=== PATIENT | female | born 1940 | race Caucasian/White ===

== ENCOUNTER 2017-12-09 17:05 | Inpatient (IN) | payer OTHER ==
[~2017-12-09] VITALS: Ht 160 cm; Wt 39.7 kg
[2017-12-09] MEDS ORDERED: ipratropium/albuterol 3ml nebule NEB ONE (17:35)
[2017-12-09] MEDS ORDERED: furosemide 10 MG/1 ML 10ml inj IV ONE (17:40)
[2017-12-09] MEDS ORDERED: diltiazem 5mg/ml 5ml inj. IV ONE (17:40)
[2017-12-09 18:05] LABS: BASOPHILS # (AUTO) 0.1 X10'3 (0-0.2); BASOPHILS % (AUTO) 0.5 % (0-1); EOSINOPHILS % (AUTO) 0.3 % (0-6); HEMATOCRIT 34.5 % (35.0-45.0); HEMOGLOBIN 11.3 g/dl (12.0-16.0); LYMPHOCYTES # (AUTO) 0.8 X10'3 (1.1-4.8); LYMPHOCYTES % (AUTO) 6.5 % (21-51); MEAN CORPUSCULAR HEMOGLOBIN 30.6 PG (27.0-31.0); MEAN CORPUSCULAR HGB CONC 32.7 % (33.0-36.5); MEAN CORPUSCULAR VOLUME 93.6 FL (78-98); MEAN PLATELET VOLUME 9.2 FL (7.4-10.4); MONOCYTES # (AUTO) 0.3 X10'3 (0-0.9); MONOCYTES % (AUTO) 2.5 % (2-12); NEUTROPHILS # (AUTO) 10.5 X10'3 (1.8-7.7); NEUTROPHILS % (AUTO) 90.2 % (42-75); PLATELET COUNT 250 X10'3 (140-440); RED BLOOD COUNT 3.68 X10'6 (4.20-5.60); RED CELL DISTRIBUTION WIDTH 14.3 % (11.5-14.5); WHITE BLOOD COUNT 11.7 X10'3 (4.5-11.0)
[2017-12-09 18:18] LABS: PARTIAL THROMBOPLASTIN TIME 28 SECONDS (22-32); PROTHROMBIN TIME 9.8 SECONDS (9.0-12.0)
[2017-12-09 18:20] LABS: ALANINE AMINOTRANSFERASE 65 U/L (12-78); ALBUMIN 3.4 G/DL (3.4-5.0); ALBUMIN/GLOBULIN RATIO 0.8 (1.1-1.5); ALKALINE PHOSPHATASE 130 IU/L (46-116); ANION GAP 10 (8-16); ASPARTATE AMINO TRANSFERASE 47 U/L (10-37); BILIRUBIN,TOTAL 0.4 MG/DL (0.1-1.0); BLOOD UREA NITROGEN 14 MG/DL (7-18); BUN/CREATININE RATIO 18.4 (6.6-38.0); CALCIUM 9.3 MG/DL (8.5-10.1); CHLORIDE 88 MMOL/L (99-107); CREATININE 0.76 MG/DL (0.40-0.90); GLUCOSE 106 MG/DL (70-104); POTASSIUM 4.1 MMOL/L (3.5-5.1); SODIUM 127 MMOL/L (135-145); TOTAL CARBON DIOXIDE 29.4 MMOL/L (24-32); TOTAL PROTEIN 7.5 G/DL (6.4-8.2); eGFR 74 ML/MIN
[2017-12-09] MEDS ORDERED: HYDR-3972 PO (19:26)
[2017-12-09] MEDS ORDERED: BUSP5TAB3 PO (19:26)
[2017-12-09] MEDS ORDERED: MIRT15TA PO (19:26)
[2017-12-09] MEDS ORDERED: BUDE10.2 INH (19:26)
[2017-12-09] MEDS ORDERED: TRAZ-218 PO (19:26)
[2017-12-09] MEDS ORDERED: ALB0.5UD IH (19:26)
[2017-12-09] MEDS ORDERED: ondansetron/PF 4mg/2ml inj IV PRN (20:00)
[2017-12-09] MEDS ORDERED: mag hydrox/Alum hydrox/simeth 30ml oral suspension PO PRN (20:00)
[2017-12-09] MEDS ORDERED: magnesium hydroxide 30ml (MOM) UD suspension PO PRN (20:00)
[2017-12-09] MEDS ORDERED: acetaminophen 325mg tablet PO PRN (20:00)
[2017-12-09] MEDS ORDERED: albuterol 2.5 mg/0.5ml nebule NEB PRN (20:05)
[2017-12-09] MEDS ORDERED: azithromycin 250mg tablet PO ONE (20:10)
[2017-12-09] MEDS ORDERED: guaiFENesin/DM/phenylephrine syrup 120ml bottle PO PRN (20:10)
[2017-12-09] MEDS: mirtazapine 15mg tablet PO SCH (21:58)
[2017-12-09] MEDS: traZODone 50mg tablet PO SCH (21:58)
[2017-12-09 22:00] VITALS: BP 95/62
[2017-12-09] MEDS: albuterol 2.5 MG/3 ML nebule NEB SCH (22:48)
[2017-12-10] MEDS ORDERED: diltiazem 30mg tablet PO ONE (00:05)
[2017-12-10] MEDS ORDERED: diltiazem 5mg/ml 5ml inj. IV ONE (00:05)
[2017-12-10] MEDS: diltiazem 30mg tablet PO SCH ×4 (00:10→20:57)
[2017-12-10] MEDS: methylPREDNISolone sod succ/PF 40mg inj. IV SCH ×3 (00:19→20:00)
[2017-12-10 02:00] VITALS: BP 160/78
[2017-12-10] MEDS: albuterol 2.5 MG/3 ML nebule NEB SCH ×4 (03:00→19:51)
[2017-12-10] MEDS: albuterol 2.5 MG/3 ML nebule NEB PRN ×2 (05:52→12:58)
[2017-12-10 06:00] VITALS: BP 132/75
[2017-12-10 06:01] LABS: BASOPHILS % (AUTO) 0.1 % (0-1); EOSINOPHILS # (AUTO) 0.1 X10'3 (0-0.9); EOSINOPHILS % (AUTO) 1.1 % (0-6); HEMATOCRIT 33.9 % (35.0-45.0); HEMOGLOBIN 11.2 g/dl (12.0-16.0); LYMPHOCYTES # (AUTO) 0.5 X10'3 (1.1-4.8); LYMPHOCYTES % (AUTO) 4.8 % (21-51); MEAN CORPUSCULAR HEMOGLOBIN 30.9 PG (27.0-31.0); MEAN CORPUSCULAR HGB CONC 33.1 % (33.0-36.5); MEAN CORPUSCULAR VOLUME 93.2 FL (78-98); MEAN PLATELET VOLUME 9.4 FL (7.4-10.4); MONOCYTES # (AUTO) 0.1 X10'3 (0-0.9); MONOCYTES % (AUTO) 0.8 % (2-12); NEUTROPHILS % (AUTO) 93.2 % (42-75); PLATELET COUNT 239 X10'3 (140-440); RED BLOOD COUNT 3.63 X10'6 (4.20-5.60); RED CELL DISTRIBUTION WIDTH 14.3 % (11.5-14.5); WHITE BLOOD COUNT 9.6 X10'3 (4.5-11.0)
[2017-12-10 06:26] LABS: GLUCOSE 99 MG/DL (70-104); POTASSIUM 4.1 MMOL/L (3.5-5.1); SODIUM 128 MMOL/L (135-145)
[2017-12-10 06:27] LABS: ALBUMIN 3.1 G/DL (3.4-5.0); ALBUMIN/GLOBULIN RATIO 0.8 (1.1-1.5); ALKALINE PHOSPHATASE 113 IU/L (46-116); ANION GAP 6 (8-16); ASPARTATE AMINO TRANSFERASE 35 U/L (10-37); BILIRUBIN,TOTAL 0.4 MG/DL (0.1-1.0); BLOOD UREA NITROGEN 17 MG/DL (7-18); BUN/CREATININE RATIO 22.4 (6.6-38.0); CALCIUM 9.5 MG/DL (8.5-10.1); CHLORIDE 88 MMOL/L (99-107); CREATININE 0.76 MG/DL (0.40-0.90); TOTAL CARBON DIOXIDE 33.6 MMOL/L (24-32); TOTAL PROTEIN 6.9 G/DL (6.4-8.2); eGFR 74 ML/MIN
[2017-12-10 06:40] LABS: ALANINE AMINOTRANSFERASE 62 U/L (12-78)
[2017-12-10] MEDS: busPIRone 5mg tablet PO SCH (07:44)
[2017-12-10] MEDS: azithromycin 250mg tablet PO SCH (07:44)
[2017-12-10] MEDS: enoxaparin 40mg/0.4ml syringe SUBCUT SCH (07:45)
[2017-12-10] MEDS ORDERED: normal saline 1000ml 1,000 ML IV SCH (08:45)
[2017-12-10] MEDS: budesonide 0.5mg/2ml UD nebule IH SCH ×2 (09:28→19:50)
[2017-12-10] MEDS ORDERED: ALPRAZolam 0.25mg tablet PO PRN (10:50)
[2017-12-10 11:00] VITALS: BP 134/65
[2017-12-10 11:31] LABS: ABG BASE EXCESS 9.4 mmol/L (-2.0-3.0); ABG OXYGEN SATURATION 95.2 % (95-98); ABG PCO2 (T) 59.9 mmHg (32.0-45.0); ABG PH (T) 7.397 (7.350-7.450); ABG PO2 (T) 78.8 mmHg (83-108); FCOHb 0.3 % (0.5-1.5); FLOW 2 L/min; FMetHb 0.3 % (0.3-1.12); FO2Hb 94.6 % (94-100); TOTAL HEMOGLOBIN 11.3 G/dl (12.0-16.0)
[2017-12-10] MEDS: HYDROcodone/acetaminophen 5mg/325mg tablet PO PRN ×2 (12:55→18:49)
[2017-12-10] MEDS ORDERED: ketorolac trometh. 30mg/ml inj. IM SCH (14:00)
[2017-12-10 15:00] VITALS: BP 119/56
[2017-12-10 18:00] VITALS: BP 143/61
[2017-12-10] MEDS: mirtazapine 15mg tablet PO SCH (20:56)
[2017-12-10] MEDS: traZODone 50mg tablet PO SCH (20:57)
[2017-12-10 22:00] VITALS: BP 144/66
[2017-12-11 02:00] VITALS: BP 147/69
[2017-12-11] MEDS: diltiazem 30mg tablet PO SCH ×4 (02:15→20:04)
[2017-12-11] MEDS: albuterol 2.5 MG/3 ML nebule NEB SCH ×4 (02:18→18:51)
[2017-12-11 05:09] LABS: BASOPHILS % (AUTO) 0.1 % (0-1); EOSINOPHILS % (AUTO) 0 % (0-6); HEMATOCRIT 31.4 % (35.0-45.0); HEMOGLOBIN 10.2 g/dl (12.0-16.0); LYMPHOCYTES # (AUTO) 0.3 X10'3 (1.1-4.8); LYMPHOCYTES % (AUTO) 2.7 % (21-51); MEAN CORPUSCULAR HEMOGLOBIN 30.4 PG (27.0-31.0); MEAN CORPUSCULAR HGB CONC 32.5 % (33.0-36.5); MEAN CORPUSCULAR VOLUME 93.4 FL (78-98); MEAN PLATELET VOLUME 9.3 FL (7.4-10.4); MONOCYTES # (AUTO) 0.2 X10'3 (0-0.9); MONOCYTES % (AUTO) 1.6 % (2-12); NEUTROPHILS # (AUTO) 11.7 X10'3 (1.8-7.7); NEUTROPHILS % (AUTO) 95.6 % (42-75); PLATELET COUNT 233 X10'3 (140-440); RED BLOOD COUNT 3.36 X10'6 (4.20-5.60); WHITE BLOOD COUNT 12.3 X10'3 (4.5-11.0)
[2017-12-11 05:31] LABS: ALANINE AMINOTRANSFERASE 48 U/L (12-78); ALBUMIN 2.9 G/DL (3.4-5.0); ALBUMIN/GLOBULIN RATIO 0.8 (1.1-1.5); ALKALINE PHOSPHATASE 95 IU/L (46-116); ANION GAP 3 (8-16); ASPARTATE AMINO TRANSFERASE 21 U/L (10-37); BILIRUBIN,TOTAL 0.3 MG/DL (0.1-1.0); BLOOD UREA NITROGEN 20 MG/DL (7-18); BUN/CREATININE RATIO 32.3 (6.6-38.0); CALCIUM 8.6 MG/DL (8.5-10.1); CHLORIDE 92 MMOL/L (99-107); CREATININE 0.62 MG/DL (0.40-0.90); GLUCOSE 142 MG/DL (70-104); POTASSIUM 4.2 MMOL/L (3.5-5.1); SODIUM 130 MMOL/L (135-145); TOTAL PROTEIN 6.5 G/DL (6.4-8.2); eGFR > 90 ML/MIN
[2017-12-11 06:00] VITALS: BP 143/65
[2017-12-11] MEDS: budesonide 0.5mg/2ml UD nebule IH SCH ×2 (08:04→18:51)
[2017-12-11] MEDS: methylPREDNISolone sod succ/PF 40mg inj. IV SCH ×2 (08:19→20:03)
[2017-12-11] MEDS: azithromycin 250mg tablet PO SCH (08:19)
[2017-12-11] MEDS: busPIRone 5mg tablet PO SCH (08:19)
[2017-12-11] MEDS: enoxaparin 40mg/0.4ml syringe SUBCUT SCH (08:20)
[2017-12-11] MEDS: HYDROcodone/acetaminophen 5mg/325mg tablet PO PRN ×3 (09:52→20:04)
[2017-12-11] MEDS: albuterol 2.5 MG/3 ML nebule NEB PRN ×2 (10:43→22:57)
[2017-12-11 11:00] VITALS: BP 112/61
[2017-12-11 15:00] VITALS: BP 115/57
[2017-12-11 19:00] VITALS: BP 142/58
[2017-12-11] MEDS: mirtazapine 15mg tablet PO SCH (20:04)
[2017-12-11] MEDS: traZODone 50mg tablet PO SCH (20:04)
[2017-12-11 23:00] VITALS: BP 146/58
[2017-12-12] MEDS: diltiazem 30mg tablet PO SCH ×4 (01:49→19:20)
[2017-12-12] MEDS: albuterol 2.5 MG/3 ML nebule NEB SCH ×4 (02:47→20:58)
[2017-12-12 03:00] VITALS: BP 145/65
[2017-12-12 06:00] VITALS: BP 148/66
[2017-12-12 06:44] LABS: BASOPHILS % (AUTO) 0 % (0-1); EOSINOPHILS # (AUTO) 0.1 X10'3 (0-0.9); EOSINOPHILS % (AUTO) 0.9 % (0-6); HEMATOCRIT 30.8 % (35.0-45.0); HEMOGLOBIN 10.1 g/dl (12.0-16.0); LYMPHOCYTES # (AUTO) 0.2 X10'3 (1.1-4.8); MEAN CORPUSCULAR HEMOGLOBIN 30.8 PG (27.0-31.0); MEAN CORPUSCULAR HGB CONC 32.9 % (33.0-36.5); MEAN CORPUSCULAR VOLUME 93.7 FL (78-98); MEAN PLATELET VOLUME 9.8 FL (7.4-10.4); MONOCYTES # (AUTO) 0.2 X10'3 (0-0.9); MONOCYTES % (AUTO) 2.5 % (2-12); NEUTROPHILS # (AUTO) 9.1 X10'3 (1.8-7.7); NEUTROPHILS % (AUTO) 94.6 % (42-75); PLATELET COUNT 237 X10'3 (140-440); RED BLOOD COUNT 3.29 X10'6 (4.20-5.60); RED CELL DISTRIBUTION WIDTH 14.3 % (11.5-14.5); WHITE BLOOD COUNT 9.7 X10'3 (4.5-11.0)
[2017-12-12 06:53] LABS: ALANINE AMINOTRANSFERASE 40 U/L (12-78); ALBUMIN 2.8 G/DL (3.4-5.0); ALBUMIN/GLOBULIN RATIO 0.8 (1.1-1.5); ALKALINE PHOSPHATASE 76 IU/L (46-116); ANION GAP 2 (8-16); ASPARTATE AMINO TRANSFERASE 15 U/L (10-37); BILIRUBIN,TOTAL 0.2 MG/DL (0.1-1.0); BLOOD UREA NITROGEN 27 MG/DL (7-18); CALCIUM 9.2 MG/DL (8.5-10.1); CHLORIDE 97 MMOL/L (99-107); CREATININE 0.71 MG/DL (0.40-0.90); GLUCOSE 143 MG/DL (70-104); SODIUM 135 MMOL/L (135-145); TOTAL CARBON DIOXIDE 36.5 MMOL/L (24-32); TOTAL PROTEIN 6.1 G/DL (6.4-8.2); eGFR 80 ML/MIN
[2017-12-12 07:06] LABS: % IRON SATURATION 11 % (11-46); IRON 26 UG/DL (49-151); TOTAL IRON BINDING CAPACITY 233 UG/DL (259-388)
[2017-12-12] MEDS: enoxaparin 40mg/0.4ml syringe SUBCUT SCH (07:18)
[2017-12-12] MEDS: pantoprazole 40mg Tablet.DR PO SCH (07:18)
[2017-12-12] MEDS: azithromycin 250mg tablet PO SCH (07:18)
[2017-12-12] MEDS: busPIRone 5mg tablet PO SCH (07:18)
[2017-12-12] MEDS: methylPREDNISolone sod succ/PF 40mg inj. IV SCH ×2 (07:18→19:19)
[2017-12-12] MEDS: budesonide 0.5mg/2ml UD nebule IH SCH ×2 (08:38→20:59)
[2017-12-12] MEDS: HYDROcodone/acetaminophen 5mg/325mg tablet PO PRN ×2 (10:44→19:21)
[2017-12-12 11:00] VITALS: BP 119/60
[2017-12-12] MEDS: albuterol 2.5 MG/3 ML nebule NEB PRN ×2 (11:52→18:29)
[2017-12-12 15:00] VITALS: BP 151/46
[2017-12-12 19:00] VITALS: BP 173/75
[2017-12-12] MEDS: lactobacillus rhamnosus 10,000 MMU CELLS/CAPSULE PO SCH (19:22)
[2017-12-12] MEDS: mirtazapine 15mg tablet PO SCH (20:51)
[2017-12-12] MEDS: traZODone 50mg tablet PO SCH (20:51)
[2017-12-12 23:00] VITALS: BP 155/62
[2017-12-13] MEDS: diltiazem 30mg tablet PO SCH ×4 (02:27→19:49)
[2017-12-13 03:00] VITALS: BP 135/62
[2017-12-13] MEDS: albuterol 2.5 MG/3 ML nebule NEB SCH ×4 (03:06→20:08)
[2017-12-13 05:08] LABS: BASOPHILS % (AUTO) 0 % (0-1); EOSINOPHILS % (AUTO) 0 % (0-6); HEMATOCRIT 31.9 % (35.0-45.0); HEMOGLOBIN 10.4 g/dl (12.0-16.0); LYMPHOCYTES # (AUTO) 0.3 X10'3 (1.1-4.8); LYMPHOCYTES % (AUTO) 1.5 % (21-51); MEAN CORPUSCULAR HEMOGLOBIN 30.9 PG (27.0-31.0); MEAN CORPUSCULAR HGB CONC 32.7 % (33.0-36.5); MEAN CORPUSCULAR VOLUME 94.7 FL (78-98); MEAN PLATELET VOLUME 9.3 FL (7.4-10.4); MONOCYTES # (AUTO) 0.4 X10'3 (0-0.9); MONOCYTES % (AUTO) 2.2 % (2-12); NEUTROPHILS # (AUTO) 16.5 X10'3 (1.8-7.7); NEUTROPHILS % (AUTO) 96.3 % (42-75); PLATELET COUNT 240 X10'3 (140-440); RED BLOOD COUNT 3.37 X10'6 (4.20-5.60); RED CELL DISTRIBUTION WIDTH 14.7 % (11.5-14.5); WHITE BLOOD COUNT 17.1 X10'3 (4.5-11.0)
[2017-12-13 05:27] LABS: ALANINE AMINOTRANSFERASE 32 U/L (12-78); ALBUMIN 2.6 G/DL (3.4-5.0); ALBUMIN/GLOBULIN RATIO 0.8 (1.1-1.5); ALKALINE PHOSPHATASE 76 IU/L (46-116); ANION GAP 1 (8-16); ASPARTATE AMINO TRANSFERASE 10 U/L (10-37); BILIRUBIN,TOTAL 0.2 MG/DL (0.1-1.0); BLOOD UREA NITROGEN 27 MG/DL (7-18); BUN/CREATININE RATIO 39.7 (6.6-38.0); CHLORIDE 100 MMOL/L (99-107); CREATININE 0.68 MG/DL (0.40-0.90); GLUCOSE 149 MG/DL (70-104); SODIUM 138 MMOL/L (135-145); TOTAL CARBON DIOXIDE 37.5 MMOL/L (24-32); TOTAL PROTEIN 5.9 G/DL (6.4-8.2); eGFR 84 ML/MIN
[2017-12-13 07:00] VITALS: BP 138/72
[2017-12-13] MEDS: lactobacillus rhamnosus 10,000 MMU CELLS/CAPSULE PO SCH ×2 (07:16→19:49)
[2017-12-13] MEDS: busPIRone 5mg tablet PO SCH (07:16)
[2017-12-13] MEDS: enoxaparin 40mg/0.4ml syringe SUBCUT SCH (07:16)
[2017-12-13] MEDS: methylPREDNISolone sod succ/PF 40mg inj. IV SCH ×2 (07:16→19:49)
[2017-12-13] MEDS: azithromycin 250mg tablet PO SCH (07:16)
[2017-12-13] MEDS: pantoprazole 40mg Tablet.DR PO SCH (07:17)
[2017-12-13] MEDS: budesonide 0.5mg/2ml UD nebule IH SCH ×2 (08:49→20:08)
[2017-12-13] MEDS: HYDROcodone/acetaminophen 5mg/325mg tablet PO PRN ×3 (09:46→19:49)
[2017-12-13 11:00] VITALS: BP 142/68
[2017-12-13] MEDS: albuterol 2.5 MG/3 ML nebule NEB PRN (13:30)
[2017-12-13 15:00] VITALS: BP 148/69
[2017-12-13 19:00] VITALS: BP 150/62
[2017-12-13] MEDS: docusate sod 100mg capsule PO SCH (19:49)
[2017-12-13] MEDS: traZODone 50mg tablet PO SCH (22:32)
[2017-12-13] MEDS: mirtazapine 15mg tablet PO SCH (22:32)
[2017-12-13 23:00] VITALS: BP 150/74
[2017-12-14] VITALS (7 sets, daily range): BP systolic 138–169; BP diastolic 61–90
[2017-12-14] MEDS: diltiazem 30mg tablet PO SCH ×4 (02:10→21:19)
[2017-12-14] MEDS: HYDROcodone/acetaminophen 5mg/325mg tablet PO PRN ×3 (02:13→23:45)
[2017-12-14] MEDS: guaiFENesin/DM 10ml UD oral syrup PO PRN ×2 (02:30→21:19)
[2017-12-14] MEDS: albuterol 2.5 MG/3 ML nebule NEB SCH ×4 (02:35→20:01)
[2017-12-14 05:07] LABS: BASOPHILS % (AUTO) 0 % (0-1); EOSINOPHILS # (AUTO) 0.2 X10'3 (0-0.9); EOSINOPHILS % (AUTO) 1.8 % (0-6); HEMATOCRIT 29.9 % (35.0-45.0); HEMOGLOBIN 9.7 g/dl (12.0-16.0); LYMPHOCYTES # (AUTO) 0.2 X10'3 (1.1-4.8); LYMPHOCYTES % (AUTO) 2.1 % (21-51); MEAN CORPUSCULAR HEMOGLOBIN 30.6 PG (27.0-31.0); MEAN CORPUSCULAR HGB CONC 32.3 % (33.0-36.5); MEAN CORPUSCULAR VOLUME 94.8 FL (78-98); MEAN PLATELET VOLUME 9.3 FL (7.4-10.4); MONOCYTES # (AUTO) 0.2 X10'3 (0-0.9); MONOCYTES % (AUTO) 1.8 % (2-12); NEUTROPHILS # (AUTO) 10.9 X10'3 (1.8-7.7); NEUTROPHILS % (AUTO) 94.3 % (42-75); PLATELET COUNT 238 X10'3 (140-440); RED BLOOD COUNT 3.16 X10'6 (4.20-5.60); RED CELL DISTRIBUTION WIDTH 14.7 % (11.5-14.5); WHITE BLOOD COUNT 11.6 X10'3 (4.5-11.0)
[2017-12-14 05:28] LABS: ALANINE AMINOTRANSFERASE 29 U/L (12-78); ALBUMIN 2.4 G/DL (3.4-5.0); ALBUMIN/GLOBULIN RATIO 0.8 (1.1-1.5); ALKALINE PHOSPHATASE 67 IU/L (46-116); ANION GAP 0 (8-16); ASPARTATE AMINO TRANSFERASE 9 U/L (10-37); BILIRUBIN,TOTAL 0.2 MG/DL (0.1-1.0); BLOOD UREA NITROGEN 25 MG/DL (7-18); BUN/CREATININE RATIO 36.8 (6.6-38.0); CALCIUM 8.6 MG/DL (8.5-10.1); CHLORIDE 99 MMOL/L (99-107); CREATININE 0.68 MG/DL (0.40-0.90); GLUCOSE 149 MG/DL (70-104); POTASSIUM 4.4 MMOL/L (3.5-5.1); SODIUM 138 MMOL/L (135-145); TOTAL CARBON DIOXIDE 38.7 MMOL/L (24-32); TOTAL PROTEIN 5.6 G/DL (6.4-8.2); eGFR 84 ML/MIN
[2017-12-14] MEDS: azithromycin 250mg tablet PO SCH (08:53)
[2017-12-14] MEDS: enoxaparin 40mg/0.4ml syringe SUBCUT SCH (08:53)
[2017-12-14] MEDS: pantoprazole 40mg Tablet.DR PO SCH (08:53)
[2017-12-14] MEDS: furosemide 20 MG/2 ML vial IV SCH ×2 (08:53→21:17)
[2017-12-14] MEDS: docusate sod 100mg capsule PO SCH ×2 (08:53→21:19)
[2017-12-14] MEDS: busPIRone 5mg tablet PO SCH (08:53)
[2017-12-14] MEDS: lactobacillus rhamnosus 10,000 MMU CELLS/CAPSULE PO SCH ×2 (08:53→21:19)
[2017-12-14] MEDS: methylPREDNISolone sod succ/PF 40mg inj. IV SCH ×2 (08:55→21:18)
[2017-12-14] MEDS: budesonide 0.5mg/2ml UD nebule IH SCH ×2 (09:04→20:01)
[2017-12-14] MEDS: albuterol 2.5 MG/3 ML nebule NEB PRN ×2 (13:42→23:12)
[2017-12-14] MEDS: traZODone 50mg tablet PO SCH (21:19)
[2017-12-14] MEDS: mirtazapine 15mg tablet PO SCH (21:19)
[2017-12-15] VITALS (8 sets, daily range): BP systolic 120–167; BP diastolic 60–79
[2017-12-15] MEDS: diltiazem 30mg tablet PO SCH ×2 (01:50→08:13)
[2017-12-15] MEDS: albuterol 2.5 MG/3 ML nebule NEB SCH ×4 (02:45→20:04)
[2017-12-15] MEDS: budesonide 0.5mg/2ml UD nebule IH SCH ×2 (07:18→20:04)
[2017-12-15] MEDS: pantoprazole 40mg Tablet.DR PO SCH (08:12)
[2017-12-15] MEDS: busPIRone 5mg tablet PO SCH (08:12)
[2017-12-15] MEDS: lactobacillus rhamnosus 10,000 MMU CELLS/CAPSULE PO SCH ×2 (08:13→20:16)
[2017-12-15] MEDS: docusate sod 100mg capsule PO SCH ×2 (08:13→20:16)
[2017-12-15] MEDS: azithromycin 250mg tablet PO SCH (08:13)
[2017-12-15] MEDS: enoxaparin 40mg/0.4ml syringe SUBCUT SCH (08:14)
[2017-12-15] MEDS: methylPREDNISolone sod succ/PF 40mg inj. IV SCH ×2 (08:18→20:16)
[2017-12-15] MEDS: furosemide 20 MG/2 ML vial IV SCH ×2 (08:18→20:16)
[2017-12-15 08:51] LABS: ALBUMIN 2.8 G/DL (3.4-5.0); ANION GAP 3 (8-16); BLOOD UREA NITROGEN 24 MG/DL (7-18); BUN/CREATININE RATIO 31.2 (6.6-38.0); CALCIUM 9.3 MG/DL (8.5-10.1); CHLORIDE 95 MMOL/L (99-107); CREATININE 0.77 MG/DL (0.40-0.90); GLUCOSE 177 MG/DL (70-104); POTASSIUM 4.2 MMOL/L (3.5-5.1); SODIUM 138 MMOL/L (135-145); TOTAL CARBON DIOXIDE 39.9 MMOL/L (24-32); eGFR 73 ML/MIN
[2017-12-15] MEDS ORDERED: diltiazem 5mg/ml 5ml inj. IV ONE (13:45)
[2017-12-15] MEDS: HYDROcodone/acetaminophen 5mg/325mg tablet PO PRN (14:02)
[2017-12-15] MEDS: diltiazem CD 180mg cap (once-daily) PO SCH (14:45)
[2017-12-15] MEDS: albuterol 2.5 MG/3 ML nebule NEB PRN (14:46)
[2017-12-15] MEDS: guaiFENesin ER 600mg tablet PO SCH (20:16)
[2017-12-15] MEDS: mirtazapine 15mg tablet PO SCH (20:25)
[2017-12-15] MEDS: traZODone 50mg tablet PO SCH (20:25)
[2017-12-16] MEDS: albuterol 2.5 MG/3 ML nebule NEB SCH ×4 (02:20→21:53)
[2017-12-16 03:00] VITALS: BP 143/72
[2017-12-16 06:39] LABS: ALBUMIN 2.6 G/DL (3.4-5.0); BLOOD UREA NITROGEN 30 MG/DL (7-18); BUN/CREATININE RATIO 39.5 (6.6-38.0); CALCIUM 9.2 MG/DL (8.5-10.1); CHLORIDE 95 MMOL/L (99-107); CREATININE 0.76 MG/DL (0.40-0.90); GLUCOSE 135 MG/DL (70-104); POTASSIUM 4.1 MMOL/L (3.5-5.1); SODIUM 139 MMOL/L (135-145); eGFR 74 ML/MIN
[2017-12-16 07:00] VITALS: BP 137/68
[2017-12-16 07:04] LABS: ANION GAP -2 (8-16)
[2017-12-16 07:26] LABS: TOTAL CARBON DIOXIDE 45.9 MMOL/L (24-32)
[2017-12-16] MEDS: azithromycin 250mg tablet PO SCH (07:49)
[2017-12-16] MEDS: busPIRone 5mg tablet PO SCH (07:49)
[2017-12-16] MEDS: lactobacillus rhamnosus 10,000 MMU CELLS/CAPSULE PO SCH ×2 (07:49→20:49)
[2017-12-16] MEDS: guaiFENesin ER 600mg tablet PO SCH ×2 (07:49→20:49)
[2017-12-16] MEDS: diltiazem CD 180mg cap (once-daily) PO SCH (07:50)
[2017-12-16] MEDS: furosemide 20 MG/2 ML vial IV SCH ×2 (07:50→20:49)
[2017-12-16] MEDS: methylPREDNISolone sod succ/PF 40mg inj. IV SCH ×2 (07:50→20:49)
[2017-12-16] MEDS: pantoprazole 40mg Tablet.DR PO SCH (07:50)
[2017-12-16] MEDS: enoxaparin 40mg/0.4ml syringe SUBCUT SCH (07:51)
[2017-12-16] MEDS: docusate sod 100mg capsule PO SCH ×2 (08:00→20:49)
[2017-12-16] MEDS: budesonide 0.5mg/2ml UD nebule IH SCH ×2 (08:07→21:53)
[2017-12-16 11:00] VITALS: BP 144/68
[2017-12-16] MEDS: HYDROcodone/acetaminophen 5mg/325mg tablet PO PRN ×3 (11:38→20:49)
[2017-12-16 15:00] VITALS: BP 137/70
[2017-12-16 19:00] VITALS: BP 153/63
[2017-12-16] MEDS: albuterol 2.5 MG/3 ML nebule NEB PRN (19:18)
[2017-12-16] MEDS: traZODone 50mg tablet PO SCH (20:49)
[2017-12-16] MEDS: mirtazapine 15mg tablet PO SCH (20:49)
[2017-12-16 23:00] VITALS: BP 164/73
[2017-12-17] MEDS: albuterol 2.5 MG/3 ML nebule NEB SCH ×4 (02:49→21:17)
[2017-12-17 03:00] VITALS: BP 134/67
[2017-12-17 06:00] VITALS: BP 118/51
[2017-12-17 07:13] LABS: ALBUMIN 2.6 G/DL (3.4-5.0); ANION GAP 2 (8-16); BLOOD UREA NITROGEN 39 MG/DL (7-18); BUN/CREATININE RATIO 46.4 (6.6-38.0); CHLORIDE 93 MMOL/L (99-107); CREATININE 0.84 MG/DL (0.40-0.90); GLUCOSE 160 MG/DL (70-104); POTASSIUM 3.7 MMOL/L (3.5-5.1); SODIUM 138 MMOL/L (135-145); eGFR 66 ML/MIN
[2017-12-17 07:21] LABS: TOTAL CARBON DIOXIDE 43.5 MMOL/L (24-32)
[2017-12-17] MEDS: budesonide 0.5mg/2ml UD nebule IH SCH ×2 (07:35→21:17)
[2017-12-17] MEDS: guaiFENesin ER 600mg tablet PO SCH ×2 (08:22→20:03)
[2017-12-17] MEDS: lactobacillus rhamnosus 10,000 MMU CELLS/CAPSULE PO SCH ×2 (08:22→20:03)
[2017-12-17] MEDS: pantoprazole 40mg Tablet.DR PO SCH (08:22)
[2017-12-17] MEDS: furosemide 20 MG/2 ML vial IV SCH ×2 (08:22→20:02)
[2017-12-17] MEDS: azithromycin 250mg tablet PO SCH (08:22)
[2017-12-17] MEDS: methylPREDNISolone sod succ/PF 40mg inj. IV SCH ×2 (08:22→20:02)
[2017-12-17] MEDS: docusate sod 100mg capsule PO SCH ×2 (08:22→20:02)
[2017-12-17] MEDS: diltiazem CD 180mg cap (once-daily) PO SCH (08:22)
[2017-12-17] MEDS: busPIRone 5mg tablet PO SCH (08:22)
[2017-12-17] MEDS: enoxaparin 40mg/0.4ml syringe SUBCUT SCH (08:23)
[2017-12-17] MEDS: HYDROcodone/acetaminophen 5mg/325mg tablet PO PRN ×2 (08:27→20:04)
[2017-12-17] MEDS: albuterol 2.5 MG/3 ML nebule NEB PRN ×3 (09:39→18:40)
[2017-12-17 11:00] VITALS: BP 140/71
[2017-12-17 15:00] VITALS: BP 128/68
[2017-12-17 18:00] VITALS: BP 176/62
[2017-12-17] MEDS: mirtazapine 15mg tablet PO SCH (20:02)
[2017-12-17] MEDS: traZODone 50mg tablet PO SCH (20:04)
[2017-12-17 22:00] VITALS: BP 128/65
[2017-12-18 02:00] VITALS: BP 119/67
[2017-12-18] MEDS: albuterol 2.5 MG/3 ML nebule NEB SCH ×4 (02:21→20:22)
[2017-12-18 05:36] LABS: ALBUMIN 2.5 G/DL (3.4-5.0); ANION GAP 4 (8-16); BLOOD UREA NITROGEN 38 MG/DL (7-18); BUN/CREATININE RATIO 52.1 (6.6-38.0); CALCIUM 9.1 MG/DL (8.5-10.1); CHLORIDE 95 MMOL/L (99-107); CREATININE 0.73 MG/DL (0.40-0.90); GLUCOSE 151 MG/DL (70-104); POTASSIUM 3.7 MMOL/L (3.5-5.1); SODIUM 141 MMOL/L (135-145); eGFR 77 ML/MIN
[2017-12-18 05:42] LABS: TOTAL CARBON DIOXIDE 42.2 MMOL/L (24-32)
[2017-12-18 07:00] VITALS: BP 154/72
[2017-12-18] MEDS: budesonide 0.5mg/2ml UD nebule IH SCH ×2 (07:20→20:22)
[2017-12-18] MEDS: enoxaparin 40mg/0.4ml syringe SUBCUT SCH (08:03)
[2017-12-18] MEDS: methylPREDNISolone sod succ/PF 40mg inj. IV SCH ×2 (08:03→20:04)
[2017-12-18] MEDS: lactobacillus rhamnosus 10,000 MMU CELLS/CAPSULE PO SCH ×2 (08:04→20:05)
[2017-12-18] MEDS: pantoprazole 40mg Tablet.DR PO SCH (08:04)
[2017-12-18] MEDS: azithromycin 250mg tablet PO SCH (08:04)
[2017-12-18] MEDS: furosemide 20 MG/2 ML vial IV SCH ×2 (08:04→20:04)
[2017-12-18] MEDS: guaiFENesin ER 600mg tablet PO SCH ×2 (08:04→20:05)
[2017-12-18] MEDS: diltiazem CD 180mg cap (once-daily) PO SCH (08:04)
[2017-12-18] MEDS: docusate sod 100mg capsule PO SCH ×2 (08:04→20:05)
[2017-12-18] MEDS: busPIRone 5mg tablet PO SCH (08:04)
[2017-12-18 11:00] VITALS: BP 131/56
[2017-12-18] MEDS: albuterol 2.5 MG/3 ML nebule NEB PRN (11:03)
[2017-12-18] MEDS ORDERED: diltiazem 5mg/ml 5ml inj. IV ONE (11:30)
[2017-12-18] MEDS: HYDROcodone/acetaminophen 5mg/325mg tablet PO PRN ×3 (11:43→21:34)
[2017-12-18 15:00] VITALS: BP 172/65
[2017-12-18 18:00] VITALS: BP 147/60
[2017-12-18] MEDS: mirtazapine 15mg tablet PO SCH (20:05)
[2017-12-18] MEDS: traZODone 50mg tablet PO SCH (20:05)
[2017-12-18 23:00] VITALS: BP 125/60
[2017-12-19 02:59] VITALS: BP 129/57
[2017-12-19] MEDS: albuterol 2.5 MG/3 ML nebule NEB SCH ×2 (03:06→06:48)
[2017-12-19 06:10] LABS: ALBUMIN 2.3 G/DL (3.4-5.0); ANION GAP 1 (8-16); BLOOD UREA NITROGEN 40 MG/DL (7-18); BUN/CREATININE RATIO 51.3 (6.6-38.0); CALCIUM 9.2 MG/DL (8.5-10.1); CHLORIDE 96 MMOL/L (99-107); CREATININE 0.78 MG/DL (0.40-0.90); GLUCOSE 137 MG/DL (70-104); POTASSIUM 3.5 MMOL/L (3.5-5.1); SODIUM 142 MMOL/L (135-145); eGFR 72 ML/MIN
[2017-12-19 06:12] LABS: TOTAL CARBON DIOXIDE 44.8 MMOL/L (24-32)
[2017-12-19] MEDS: budesonide 0.5mg/2ml UD nebule IH SCH (06:47)
[2017-12-19 07:00] VITALS: BP 155/61
[2017-12-19] MEDS: lactobacillus rhamnosus 10,000 MMU CELLS/CAPSULE PO SCH (07:43)
[2017-12-19] MEDS: busPIRone 5mg tablet PO SCH (07:43)
[2017-12-19] MEDS: furosemide 20 MG/2 ML vial IV SCH (07:43)
[2017-12-19] MEDS: guaiFENesin ER 600mg tablet PO SCH (07:43)
[2017-12-19] MEDS: pantoprazole 40mg Tablet.DR PO SCH (07:43)
[2017-12-19] MEDS: diltiazem CD 180mg cap (once-daily) PO SCH (07:43)
[2017-12-19] MEDS: docusate sod 100mg capsule PO SCH (07:43)
[2017-12-19] MEDS: methylPREDNISolone sod succ/PF 40mg inj. IV SCH (07:43)
[2017-12-19] MEDS: enoxaparin 40mg/0.4ml syringe SUBCUT SCH (07:44)
[2017-12-19] MEDS ORDERED: diltiazem 30mg tablet PO ONE (09:25)
[2017-12-19 11:00] VITALS: BP 130/47
[2017-12-19] MEDS: HYDROcodone/acetaminophen 5mg/325mg tablet PO PRN (11:21)
[2017-12-19] MEDS: albuterol 2.5 MG/3 ML nebule NEB PRN (11:41)
[2017-12-20] MEDS ORDERED: diltiazem CD 120mg capsule (once-daily) PO SCH (08:00)
== END 2017-12-19 14:30 | DRG 291 ==
LOC: ER 17:05 → PCU 3S 19:58
PROVIDERS: ADMIT Internal Medicine; ATTEND Internal Medicine
PROC: 5A09357 Assistance with Respiratory Ventilation, Less than 24 Consecutive Hours, Continuous Positive Airway Pressure (ICD-10-PCS; principal; 2017-12-16)
PROC: 5A09357 Assistance with Respiratory Ventilation, Less than 24 Consecutive Hours, Continuous Positive Airway Pressure (ICD-10-PCS; 2017-12-17)
PROC: 5A09357 Assistance with Respiratory Ventilation, Less than 24 Consecutive Hours, Continuous Positive Airway Pressure (ICD-10-PCS; 2017-12-18)
PROC: 5A09357 Assistance with Respiratory Ventilation, Less than 24 Consecutive Hours, Continuous Positive Airway Pressure (ICD-10-PCS; 2017-12-19)
DX: I50.33 Acute on chronic diastolic (congestive) heart failure (principal); E43 Unspecified severe protein-calorie malnutrition; J96.21 Acute and chronic respiratory failure with hypoxia; J44.1 Chronic obstructive pulmonary disease with (acute) exacerbation; E87.1 Hypo-osmolality and hyponatremia; Z68.1 Body mass index [BMI] 19.9 or less, adult; M81.0 Age-related osteoporosis without current pathological fracture; H54.8 Legal blindness, as defined in USA; F17.200 Nicotine dependence, unspecified, uncomplicated; I48.0 Paroxysmal atrial fibrillation; D50.9 Iron deficiency anemia, unspecified; Z79.899 Other long term (current) drug therapy
CPT/HCPCS: 36415; 36600; 71045; 76937; 80048; 80053; 82803; 83540; 83550; 83880; 84484; 85018; 85025; 85610; 85730; 87070; 93005; 93306; 94640; 94660; 94760; G0378; J1650; J1940; J2920; J3490; J7030; J7611; J7626

== ENCOUNTER 2018-01-31 01:03 | Inpatient (IN) | payer OTHER ==
[~2018-01-31] VITALS: Ht 157.5 cm; Wt 43.2 kg
[~2018-01-31 01:03] MED LIST: ALB0.5UD IH; BUDE10.2 INH; BUSP5TAB3 PO; HYDR-3972 PO; MIRT15TA PO; TRAZ-218 PO
[2018-01-31] MEDS ORDERED: albuterol 2.5 MG/3 ML nebule NEB ONE ×2 (03:20→09:50)
[2018-01-31] MEDS ORDERED: HYDROcodone/acetaminophen 10/325mg tab PO ONE (04:50)
--- NOTE | 2018-01-31 07:19 | NUR ---
PATIENT PLACED ON A HOSPITAL BED.
[2018-01-31] MEDS ORDERED: normal saline 1000ml 1,000 ML IV ONE (07:32)
[2018-01-31 08:33] LABS: BASOPHILS # (AUTO) 0.1 X10'3 (0-0.2); BASOPHILS % (AUTO) 0.4 % (0-1); EOSINOPHILS # (AUTO) 0.4 X10'3 (0-0.9); EOSINOPHILS % (AUTO) 2.9 % (0-6); GLUCOSE, URINE NEGATIVE (Neg); HEMATOCRIT 33.8 % (35.0-45.0); HEMOGLOBIN 11.3 g/dl (12.0-16.0); KETONES,URINE TRACE mg/dl (Neg); LEUKOCYTE ESTERASE ,URINE NEGATIVE (Neg); LYMPHOCYTES # (AUTO) 1.7 X10'3 (1.1-4.8); LYMPHOCYTES % (AUTO) 13.4 % (21-51); MEAN CORPUSCULAR HEMOGLOBIN 31.1 PG (27.0-31.0); MEAN CORPUSCULAR HGB CONC 33.4 % (33.0-36.5); MEAN CORPUSCULAR VOLUME 93.1 FL (78-98); MEAN PLATELET VOLUME 8.4 FL (7.4-10.4); MONOCYTES # (AUTO) 0.6 X10'3 (0-0.9); MONOCYTES % (AUTO) 4.3 % (2-12); NEUTROPHILS # (AUTO) 10.2 X10'3 (1.8-7.7); NITRITES, URINE NEGATIVE (Neg); OCCULT BLOOD,URINE NEGATIVE (Neg); PH,URINE 6.5 (4.8-8.0); PLATELET COUNT 244 X10'3 (140-440); PROTEIN,URINE TRACE mg/dl (Neg); RED BLOOD COUNT 3.63 X10'6 (4.20-5.60); RED CELL DISTRIBUTION WIDTH 14.8 % (11.5-14.5); UROBILINOGEN,URINE 0.2 E.U/dL (0.2-1.0); WHITE BLOOD COUNT 12.9 X10'3 (4.5-11.0)
[2018-01-31 08:38] LABS: CLARITY,URINE CLEAR (Clear); COLOR,URINE Yellow (Yellow); UA COLLECTION TYPE FOLEY CATH
[2018-01-31 08:40] LABS: BACTERIA,URINE NONE SEEN /HPF (Neg); MUCUS STRANDS NONE SEEN /LPF (Neg); RBC,URINE 0-2 /HPF (0-2); SQUAMOUS EPITHELIAL CELL,UR NONE SEEN /LPF (FEW); WBC,URINE NONE SEEN /HPF (0-4)
[2018-01-31 08:48] LABS: ALANINE AMINOTRANSFERASE 66 U/L (12-78); ALBUMIN 3.1 G/DL (3.4-5.0); ALBUMIN/GLOBULIN RATIO 0.8 (1.1-1.5); ALKALINE PHOSPHATASE 85 IU/L (46-116); ANION GAP 9 (8-16); ASPARTATE AMINO TRANSFERASE 20 U/L (10-37); BILIRUBIN,TOTAL 0.5 MG/DL (0.1-1.0); BLOOD UREA NITROGEN 22 MG/DL (7-18); BUN/CREATININE RATIO 24.4 (6.6-38.0); CALCIUM 9.2 MG/DL (8.5-10.1); CHLORIDE 98 MMOL/L (99-107); GLUCOSE 99 MG/DL (70-104); POTASSIUM 3.5 MMOL/L (3.5-5.1); SODIUM 139 MMOL/L (135-145); TOTAL CARBON DIOXIDE 31.8 MMOL/L (24-32); TOTAL PROTEIN 6.9 G/DL (6.4-8.2); eGFR 61 ML/MIN
[2018-01-31 08:58] LABS: PARTIAL THROMBOPLASTIN TIME 25 SECONDS (22-32); PROTHROMBIN TIME 9.7 SECONDS (9.0-12.0)
--- NOTE | 2018-01-31 09:47 | NUR ---
patient c/o sob,dr. calhoun aware will order breathing tx.
--- NOTE | 2018-01-31 10:27 | NUR ---
DR. SHELBY AT BEDSIDE.
[2018-01-31] MEDS ORDERED: ALB0.5UD IH (10:30)
[2018-01-31] MEDS ORDERED: BUSP10TA11 PO (10:30)
[2018-01-31] MEDS ORDERED: FLUT1BLS3 (10:30)
[2018-01-31] MEDS ORDERED: FURO-150 PO (10:30)
[2018-01-31] MEDS ORDERED: DILT120C51 PO (10:30)
[2018-01-31] MEDS ORDERED: PRED1TAB PO (10:30)
[2018-01-31] MEDS ORDERED: MIRT15TA10 PO (10:30)
[2018-01-31] MEDS ORDERED: TRAZ-218 PO (10:30)
[2018-01-31] MEDS ORDERED: HYDR-4353 PO (10:30)
[2018-01-31] MEDS ORDERED: potassium Cl 40MEQ/NS 500ml 500 ML IV PRN ×2 (11:25)
[2018-01-31] MEDS ORDERED: magnesium 4gm in 100ml NS 100 ML IV PRN (11:25)
[2018-01-31] MEDS ORDERED: mag hydrox/Alum hydrox/simeth 30ml oral suspension PO PRN (11:25)
[2018-01-31] MEDS ORDERED: magnesium hydroxide 30ml (MOM) UD suspension PO PRN (11:25)
[2018-01-31] MEDS ORDERED: magnesium Cl slow-release 64mg tablet PO PRN (11:25)
[2018-01-31] MEDS ORDERED: ondansetron/PF 4mg/2ml inj IV PRN (11:25)
[2018-01-31] MEDS ORDERED: potassium Cl 20 mEq SR tablet PO PRN ×2 (11:25)
[2018-01-31] MEDS ORDERED: acetaminophen 325mg tablet PO PRN (11:25)
[2018-01-31] MEDS: normal saline 1000ml 1,000 ML IV SCH (11:52)
[2018-01-31 12:30] VITALS: BP 140/65
--- NOTE | 2018-01-31 12:30 | NUR ---
ASSUMED CARE, RECEIVED REPORT FROM PARUL OTERO, PT RESTING COMFORTABLY, WILL CONTINUE TO MONITOR.
[2018-01-31] MEDS: morphine 4 MG/ML inj SYRINge IV PRN (13:16)
[2018-01-31] MEDS: CefTRIAXone/D5W-Rocephin 1gm 50 ML IV SCH (13:16)
[2018-01-31] MEDS: HYDROcodone/acetaminophen 10/325mg tab PO PRN ×2 (16:00→22:46)
[2018-01-31] MEDS: albuterol 2.5 MG/3 ML nebule NEB SCH ×2 (16:27→18:57)
--- NOTE | 2018-01-31 16:59 | NUR ---
PAGER ID: [phone] MESSAGE: WENDY [id number] RE: GIOVANNI [id number] DO YOU WANT PT ORDER FOR THE MORNING?
--- NOTE | 2018-01-31 17:00 | NUR ---
NO PHYSICAL THERAPY UNTIL CONSULTED WITH DR ALONSO.
[2018-01-31 18:00] VITALS: BP 134/65
--- NOTE | 2018-01-31 18:15 | NUR ---
Problems reprioritized. Patient report given, questions answered & plan of care reviewed with ANGEL LUIS OTERO.
--- NOTE | 2018-01-31 18:30 | NUR ---
Patient in room ORTHO 4009. I have received report from Dylan OTERO and had the opportunity to ask questions and assume patient care.
[2018-01-31] MEDS: budesonide 0.5mg/2ml UD nebule IH SCH (18:57)
[2018-01-31] MEDS: enoxaparin 40mg/0.4ml syringe SUBCUT SCH (20:22)
[2018-01-31] MEDS: traZODone 50mg tablet PO SCH (20:23)
[2018-01-31] MEDS: busPIRone 5mg tablet PO SCH (20:23)
[2018-01-31] MEDS: mirtazapine 15mg tablet PO SCH (20:23)
[2018-01-31 22:00] VITALS: BP 107/70
[2018-02-01] MEDS: HYDROcodone/acetaminophen 10/325mg tab PO PRN ×4 (05:37→21:57)
[2018-02-01 06:00] VITALS: BP 128/52
--- NOTE | 2018-02-01 06:03 | NUR ---
Patient in room ORTHO 4009. I have received report from ANGEL LUIS OTERO and had the opportunity to ask questions and assume patient care.
--- NOTE | 2018-02-01 06:26 | NUR ---
Problems reprioritized. Patient report given, questions answered & plan of care reviewed with Dylan OTERO.
[2018-02-01] MEDS: K and/or MAG REPLACEMENT MC SCH (08:00)
[2018-02-01] MEDS: CefTRIAXone/D5W-Rocephin 1gm 50 ML IV SCH (08:12)
[2018-02-01] MEDS: enoxaparin 40mg/0.4ml syringe SUBCUT SCH ×2 (08:12→21:52)
[2018-02-01] MEDS: busPIRone 5mg tablet PO SCH ×3 (08:12→21:52)
[2018-02-01] MEDS: predniSONE 20 mg tablet PO SCH (08:12)
[2018-02-01] MEDS: diltiazem CD 120mg capsule (once-daily) PO SCH (08:12)
[2018-02-01 08:24] LABS: ALANINE AMINOTRANSFERASE 42 U/L (12-78); ALBUMIN 2.7 G/DL (3.4-5.0); ALBUMIN/GLOBULIN RATIO 0.8 (1.1-1.5); ALKALINE PHOSPHATASE 70 IU/L (46-116); ANION GAP 6 (8-16); ASPARTATE AMINO TRANSFERASE 11 U/L (10-37); BILIRUBIN,TOTAL 0.5 MG/DL (0.1-1.0); BLOOD UREA NITROGEN 16 MG/DL (7-18); BUN/CREATININE RATIO 17.6 (6.6-38.0); CALCIUM 8.7 MG/DL (8.5-10.1); CHLORIDE 102 MMOL/L (99-107); CREATININE 0.91 MG/DL (0.40-0.90); GLUCOSE 88 MG/DL (70-104); MAGNESIUM 1.9 MG/DL (1.5-2.4); POTASSIUM 3.9 MMOL/L (3.5-5.1); SODIUM 140 MMOL/L (135-145); TOTAL PROTEIN 6.3 G/DL (6.4-8.2); eGFR 60 ML/MIN
[2018-02-01] MEDS: budesonide 0.5mg/2ml UD nebule IH SCH ×2 (08:49→20:27)
[2018-02-01] MEDS: albuterol 2.5 MG/3 ML nebule NEB SCH ×4 (08:49→20:27)
[2018-02-01 08:51] LABS: BASOPHILS % (AUTO) 0.3 % (0-1); EOSINOPHILS # (AUTO) 0.4 X10'3 (0-0.9); EOSINOPHILS % (AUTO) 3.4 % (0-6); HEMATOCRIT 32.2 % (35.0-45.0); HEMOGLOBIN 10.7 g/dl (12.0-16.0); LYMPHOCYTES # (AUTO) 1.6 X10'3 (1.1-4.8); LYMPHOCYTES % (AUTO) 13.7 % (21-51); MEAN CORPUSCULAR HEMOGLOBIN 31.1 PG (27.0-31.0); MEAN CORPUSCULAR HGB CONC 33.2 % (33.0-36.5); MEAN CORPUSCULAR VOLUME 93.9 FL (78-98); MEAN PLATELET VOLUME 9.3 FL (7.4-10.4); MONOCYTES # (AUTO) 0.6 X10'3 (0-0.9); MONOCYTES % (AUTO) 4.7 % (2-12); NEUTROPHILS # (AUTO) 9.4 X10'3 (1.8-7.7); NEUTROPHILS % (AUTO) 77.9 % (42-75); PLATELET COUNT 220 X10'3 (140-440); RED BLOOD COUNT 3.43 X10'6 (4.20-5.60); RED CELL DISTRIBUTION WIDTH 15.2 % (11.5-14.5)
[2018-02-01] MEDS: morphine 4 MG/ML inj SYRINge IV PRN (09:33)
[2018-02-01 10:00] VITALS: BP 120/66
--- NOTE | 2018-02-01 12:01 | NUR ---
PAGER ID: [phone] MESSAGE: [id number] RE: GIOVANNI [id number] CAN WE INCREASE HER NORCO TO Q4? THIS IS WHAT SHE DOES AT HOME?
[2018-02-01 18:00] VITALS: BP 127/51
--- NOTE | 2018-02-01 18:25 | NUR ---
Problems reprioritized. Patient report given, questions answered & plan of care reviewed with FENG OETRO.
--- NOTE | 2018-02-01 18:45 | NUR ---
Patient in room ORTHO 4009. I have received report from BRANDEN Richardson and had the opportunity to ask questions and assume patient care.
[2018-02-01] MEDS: traZODone 50mg tablet PO SCH (21:52)
[2018-02-01] MEDS: lactobacillus rhamnosus 10,000 MMU CELLS/CAPSULE PO SCH (21:52)
[2018-02-01] MEDS: mirtazapine 15mg tablet PO SCH (21:52)
[2018-02-01 22:00] VITALS: BP 152/66
[2018-02-02] VITALS (19 sets, daily range): BP systolic 92–167; BP diastolic 42–112
[2018-02-02] MEDS: HYDROcodone/acetaminophen 10/325mg tab PO PRN ×5 (04:01→23:59)
--- NOTE | 2018-02-02 06:06 | NUR ---
Problems reprioritized. Patient report given, questions answered & plan of care reviewed with BRANDEN Richardson.
[2018-02-02 07:11] LABS: BASOPHILS % (AUTO) 0.3 % (0-1); EOSINOPHILS # (AUTO) 0.2 X10'3 (0-0.9); EOSINOPHILS % (AUTO) 1.9 % (0-6); HEMATOCRIT 27.8 % (35.0-45.0); HEMOGLOBIN 9.2 g/dl (12.0-16.0); LYMPHOCYTES # (AUTO) 1.5 X10'3 (1.1-4.8); LYMPHOCYTES % (AUTO) 11.3 % (21-51); MEAN CORPUSCULAR HEMOGLOBIN 31.2 PG (27.0-31.0); MEAN CORPUSCULAR HGB CONC 33.2 % (33.0-36.5); MEAN PLATELET VOLUME 8.9 FL (7.4-10.4); MONOCYTES # (AUTO) 0.5 X10'3 (0-0.9); NEUTROPHILS # (AUTO) 10.6 X10'3 (1.8-7.7); NEUTROPHILS % (AUTO) 82.5 % (42-75); PLATELET COUNT 201 X10'3 (140-440); RED BLOOD COUNT 2.96 X10'6 (4.20-5.60); RED CELL DISTRIBUTION WIDTH 14.5 % (11.5-14.5); WHITE BLOOD COUNT 12.9 X10'3 (4.5-11.0)
[2018-02-02 07:33] LABS: ALANINE AMINOTRANSFERASE 38 U/L (12-78); ALBUMIN 2.6 G/DL (3.4-5.0); ALBUMIN/GLOBULIN RATIO 0.7 (1.1-1.5); ALKALINE PHOSPHATASE 62 IU/L (46-116); ANION GAP 7 (8-16); ASPARTATE AMINO TRANSFERASE 10 U/L (10-37); BILIRUBIN,TOTAL 0.3 MG/DL (0.1-1.0); BLOOD UREA NITROGEN 20 MG/DL (7-18); BUN/CREATININE RATIO 24.7 (6.6-38.0); CALCIUM 8.6 MG/DL (8.5-10.1); CHLORIDE 103 MMOL/L (99-107); CREATININE 0.81 MG/DL (0.40-0.90); GLUCOSE 93 MG/DL (70-104); POTASSIUM 3.7 MMOL/L (3.5-5.1); SODIUM 139 MMOL/L (135-145); TOTAL CARBON DIOXIDE 29.2 MMOL/L (24-32); TOTAL PROTEIN 6.2 G/DL (6.4-8.2); eGFR 69 ML/MIN
[2018-02-02] MEDS: enoxaparin 40mg/0.4ml syringe SUBCUT SCH ×2 (08:00→20:01)
[2018-02-02] MEDS: lactobacillus rhamnosus 10,000 MMU CELLS/CAPSULE PO SCH ×2 (08:00→20:01)
[2018-02-02] MEDS: K and/or MAG REPLACEMENT MC SCH (08:00)
[2018-02-02] MEDS: diltiazem CD 120mg capsule (once-daily) PO SCH (08:03)
[2018-02-02] MEDS: busPIRone 5mg tablet PO SCH ×3 (08:03→21:00)
[2018-02-02] MEDS: predniSONE 20 mg tablet PO SCH (08:03)
[2018-02-02] MEDS: CefTRIAXone/D5W-Rocephin 1gm 50 ML IV SCH (08:04)
[2018-02-02] MEDS: albuterol 2.5 MG/3 ML nebule NEB SCH ×4 (08:22→19:33)
[2018-02-02] MEDS: budesonide 0.5mg/2ml UD nebule IH SCH ×2 (08:22→19:33)
[2018-02-02] MEDS: normal saline 1000ml 1,000 ML IV SCH (11:24)
--- NOTE | 2018-02-02 14:00 | NUR ---
PATIENT TO THE OR, REPORT, FAMILY AT BEDSIDE, REPORT CALLED TO ROSE OTERO IN PACU.
[2018-02-02] MEDS ORDERED: tetracaine 1% (10mg/ml) pres. free inj. ONE (14:36)
[2018-02-02] MEDS ORDERED: midazolam 2 mg/2 ml injection ONE (14:38)
[2018-02-02] MEDS ORDERED: fentaNYL/PF 50MCG/1 ML 2ML syringe ONE (14:38)
[2018-02-02] MEDS ORDERED: BUPIVAcaine/dex-water/PF 7.5 mg/ml 2ml ampul ONE (14:41)
[2018-02-02] MEDS ORDERED: ringers solution, lacted 1,000 ML IV SCH (15:12)
[2018-02-02] MEDS ORDERED: ondansetron/PF 4mg/2ml inj IV PRN (15:15)
[2018-02-02] MEDS ORDERED: meperidine/PF 25mg/ml syringe IV PRN ×3 (15:15)
[2018-02-02] MEDS ORDERED: morphine 4 MG/ML inj SYRINge IV PRN ×3 (15:15→22:40)
[2018-02-02] MEDS ORDERED: proCHLORperazine 10 MG/2 ml inj IV PRN (15:15)
--- NOTE | 2018-02-02 15:52 | NUR ---
Received from OR via , accompanied by Anesthesiologist DR CANALES and report given by Anesthesiolgist. AWAKE AND CARLY PAIN. VITALS STABLE. DRESSING DI. CARLY PAIN. SENSETION AT MID CHEST. JAMES WITH CLEAR URINE.
--- NOTE | 2018-02-02 16:52 | NUR ---
Report called to receiving nurse. Transferred via BED Belongings . Special Issues communicated to receiving nurse. AWAKE AND ORIENTED. VITALS STABLE. DRESSING DI. CARLY PAIN. TO ORTHO RM 4009C AT THIS TIME.
--- NOTE | 2018-02-02 17:00 | NUR ---
ASSUMED CARE, RECEIVED REPORT FROM ADRY OTERO, PATIENT RESTING COMFORTABLY WITH FAMILY AT BEDSIDE, POST OP VITALS STARTED, REPROTS 0/10 PAIN, WILL CONTINUE TO MONITOR.
[2018-02-02] MEDS: ceFAZolin 1GM/D5W- ADD-VANTAGE 50 ML IV SCH ×2 (17:30→23:59)
--- NOTE | 2018-02-02 18:30 | NUR ---
Patient in room ORTHO 4009. I have received report from BRANDEN Richardson and had the opportunity to ask questions and assume patient care. Patient with daughters at bedside. No c/o pain at this time. Gauze with tegaderm over the top on left hip. Has productive, wet cough.
[2018-02-02] MEDS: morphine 4 MG/ML inj SYRINge IV PRN (20:48)
[2018-02-02] MEDS: traZODone 50mg tablet PO PRN (21:00)
[2018-02-02] MEDS: mirtazapine 15mg tablet PO SCH (21:00)
[2018-02-03] MEDS: HYDROcodone/acetaminophen 10/325mg tab PO PRN ×4 (04:40→19:43)
[2018-02-03 06:00] VITALS: BP 121/67
--- NOTE | 2018-02-03 06:47 | NUR ---
Problems reprioritized. Patient report given, questions answered & plan of care reviewed with BRANDEN Williamson.
[2018-02-03 07:30] LABS: BASOPHILS % (AUTO) 0.4 % (0-1); EOSINOPHILS # (AUTO) 0.2 X10'3 (0-0.9); EOSINOPHILS % (AUTO) 1.9 % (0-6); HEMATOCRIT 27.4 % (35.0-45.0); HEMOGLOBIN 8.8 g/dl (12.0-16.0); LYMPHOCYTES # (AUTO) 1.6 X10'3 (1.1-4.8); LYMPHOCYTES % (AUTO) 15.2 % (21-51); MEAN CORPUSCULAR HEMOGLOBIN 30.3 PG (27.0-31.0); MEAN CORPUSCULAR HGB CONC 32.1 % (33.0-36.5); MEAN CORPUSCULAR VOLUME 94.2 FL (78-98); MEAN PLATELET VOLUME 8.7 FL (7.4-10.4); MONOCYTES # (AUTO) 0.5 X10'3 (0-0.9); MONOCYTES % (AUTO) 4.7 % (2-12); NEUTROPHILS # (AUTO) 8.2 X10'3 (1.8-7.7); NEUTROPHILS % (AUTO) 77.8 % (42-75); PLATELET COUNT 244 X10'3 (140-440); RED CELL DISTRIBUTION WIDTH 15.4 % (11.5-14.5); WHITE BLOOD COUNT 10.5 X10'3 (4.5-11.0)
[2018-02-03] MEDS: albuterol 2.5 MG/3 ML nebule NEB SCH ×4 (07:30→20:10)
[2018-02-03] MEDS: budesonide 0.5mg/2ml UD nebule IH SCH ×2 (07:30→20:10)
[2018-02-03] MEDS: K and/or MAG REPLACEMENT MC SCH (08:00)
[2018-02-03 08:06] LABS: ALANINE AMINOTRANSFERASE 34 U/L (12-78); ALBUMIN 2.6 G/DL (3.4-5.0); ALBUMIN/GLOBULIN RATIO 0.7 (1.1-1.5); ALKALINE PHOSPHATASE 70 IU/L (46-116); ANION GAP 6 (8-16); ASPARTATE AMINO TRANSFERASE 11 U/L (10-37); BILIRUBIN,TOTAL 0.2 MG/DL (0.1-1.0); BLOOD UREA NITROGEN 17 MG/DL (7-18); BUN/CREATININE RATIO 18.9 (6.6-38.0); CALCIUM 8.9 MG/DL (8.5-10.1); CHLORIDE 104 MMOL/L (99-107); GLUCOSE 90 MG/DL (70-104); MAGNESIUM 1.9 MG/DL (1.5-2.4); POTASSIUM 4.4 MMOL/L (3.5-5.1); SODIUM 141 MMOL/L (135-145); TOTAL CARBON DIOXIDE 30.8 MMOL/L (24-32); TOTAL PROTEIN 6.3 G/DL (6.4-8.2); eGFR 61 ML/MIN
[2018-02-03] MEDS: busPIRone 5mg tablet PO SCH ×3 (08:07→21:12)
[2018-02-03] MEDS: enoxaparin 40mg/0.4ml syringe SUBCUT SCH (08:07)
[2018-02-03] MEDS: lactobacillus rhamnosus 10,000 MMU CELLS/CAPSULE PO SCH ×2 (08:07→19:43)
[2018-02-03] MEDS: diltiazem CD 120mg capsule (once-daily) PO SCH (08:07)
[2018-02-03 10:00] VITALS: BP 107/60
--- NOTE | 2018-02-03 11:51 | NUR ---
discussed eliquis with pharmacist, okd dose for weight and renal function per Dr Alejo
[2018-02-03 14:00] VITALS: BP 138/59
--- NOTE | 2018-02-03 14:48 | NUR ---
rodriguez catheter removed at this time. Pt tolerated well Addendum: 02/03/18 at 1449 by Lori Biggs RN Amended: Links added.
--- NOTE | 2018-02-03 17:31 | NUR ---
pt states her pain is a 7, however she denies need for further intervention. Offered breakthrough pain meds. Pt does not appear in distress. Will continue to monitor. States "maybe pain meds after dinner before bed"
[2018-02-03 18:00] VITALS: BP 142/57
--- NOTE | 2018-02-03 18:28 | NUR ---
Patient in room ORTHO 4009. I have received report from BRANDEN Williamson and had the opportunity to ask questions and assume patient care.
[2018-02-03] MEDS: apixaban 5mg tablet PO SCH (19:43)
[2018-02-03] MEDS: mirtazapine 15mg tablet PO SCH (21:12)
[2018-02-03] MEDS: traZODone 50mg tablet PO PRN (21:12)
[2018-02-03 22:00] VITALS: BP 130/75
[2018-02-04] MEDS: HYDROcodone/acetaminophen 10/325mg tab PO PRN ×4 (04:16→21:07)
[2018-02-04] MEDS: budesonide 0.5mg/2ml UD nebule IH SCH ×2 (07:41→20:13)
[2018-02-04] MEDS: albuterol 2.5 MG/3 ML nebule NEB SCH ×4 (07:41→20:13)
[2018-02-04 07:42] LABS: BASOPHILS % (AUTO) 0.3 % (0-1); EOSINOPHILS # (AUTO) 0.1 X10'3 (0-0.9); EOSINOPHILS % (AUTO) 0.7 % (0-6); HEMATOCRIT 24.6 % (35.0-45.0); HEMOGLOBIN 8.4 g/dl (12.0-16.0); LYMPHOCYTES # (AUTO) 0.9 X10'3 (1.1-4.8); LYMPHOCYTES % (AUTO) 8.4 % (21-51); MEAN CORPUSCULAR HEMOGLOBIN 32.1 PG (27.0-31.0); MEAN CORPUSCULAR HGB CONC 34.2 % (33.0-36.5); MONOCYTES # (AUTO) 0.5 X10'3 (0-0.9); MONOCYTES % (AUTO) 4.9 % (2-12); NEUTROPHILS # (AUTO) 9.7 X10'3 (1.8-7.7); NEUTROPHILS % (AUTO) 85.7 % (42-75); PLATELET COUNT 230 X10'3 (140-440); RED BLOOD COUNT 2.62 X10'6 (4.20-5.60); RED CELL DISTRIBUTION WIDTH 13.9 % (11.5-14.5); WHITE BLOOD COUNT 11.2 X10'3 (4.5-11.0)
[2018-02-04 07:55] LABS: ALANINE AMINOTRANSFERASE 28 U/L (12-78); ALBUMIN 2.5 G/DL (3.4-5.0); ALBUMIN/GLOBULIN RATIO 0.7 (1.1-1.5); ALKALINE PHOSPHATASE 58 IU/L (46-116); ANION GAP 6 (8-16); ASPARTATE AMINO TRANSFERASE 12 U/L (10-37); BILIRUBIN,TOTAL 0.3 MG/DL (0.1-1.0); BLOOD UREA NITROGEN 22 MG/DL (7-18); BUN/CREATININE RATIO 23.9 (6.6-38.0); CALCIUM 9.1 MG/DL (8.5-10.1); CHLORIDE 100 MMOL/L (99-107); CREATININE 0.92 MG/DL (0.40-0.90); GLUCOSE 100 MG/DL (70-104); MAGNESIUM 1.8 MG/DL (1.5-2.4); POTASSIUM 4.4 MMOL/L (3.5-5.1); SODIUM 137 MMOL/L (135-145); TOTAL PROTEIN 6.1 G/DL (6.4-8.2); eGFR 59 ML/MIN
[2018-02-04] MEDS: K and/or MAG REPLACEMENT MC SCH (08:00)
[2018-02-04] MEDS: busPIRone 5mg tablet PO SCH ×3 (08:51→21:08)
[2018-02-04] MEDS: lactobacillus rhamnosus 10,000 MMU CELLS/CAPSULE PO SCH ×2 (08:51→21:07)
[2018-02-04] MEDS: diltiazem CD 120mg capsule (once-daily) PO SCH (08:51)
[2018-02-04] MEDS: apixaban 5mg tablet PO SCH ×2 (08:52→21:08)
--- NOTE | 2018-02-04 09:25 | NUR ---
PAGER ID: [phone] MESSAGE: Teri [id number] Tamera Sanders in 4009c- received call from tele, pt is in afib rate up to 148 from low 100's, she is having more respiratory distress than before w grunting and retractions. Recent hx PNE but worsening from previous
[2018-02-04 10:00] VITALS: BP 107/53
[2018-02-04 10:20] LABS: D-DIMER 1.52 MG/L FEU (0-0.50)
[2018-02-04] MEDS ORDERED: methylPREDNISolone sod succ 125mg/2ml vial IV ONE (15:15)
[2018-02-04] MEDS ORDERED: cefepime 2gm inj IV SCH (16:00)
[2018-02-04] MEDS: CEFEPIME 2 GM in NS 100ml IV.SOLN 100 ML IV SCH (16:45)
[2018-02-04 18:00] VITALS: BP 128/54
--- NOTE | 2018-02-04 18:30 | NUR ---
Patient in room ORTHO 4009. I have received report from BRANDEN Williamson and had the opportunity to ask questions and assume patient care. Patient with no c/o pain or s/sx of distress at this time.
[2018-02-04] MEDS ORDERED: albuterol 2.5 MG/3 ML nebule NEB PRN (20:35)
[2018-02-04] MEDS: mirtazapine 15mg tablet PO SCH (21:08)
[2018-02-04 22:00] VITALS: BP 121/61
[2018-02-05] MEDS: CEFEPIME 2 GM in NS 100ml IV.SOLN 100 ML IV SCH ×3 (01:04→15:02)
[2018-02-05] MEDS: HYDROcodone/acetaminophen 10/325mg tab PO PRN ×4 (01:56→20:27)
[2018-02-05 06:00] VITALS: BP 123/72
--- NOTE | 2018-02-05 06:19 | NUR ---
Problems reprioritized. Patient report given, questions answered & plan of care reviewed with BRANDEN Garces.
[2018-02-05 06:53] LABS: BASOPHILS % (AUTO) 0.1 % (0-1); EOSINOPHILS % (AUTO) 0 % (0-6); HEMATOCRIT 24.7 % (35.0-45.0); HEMOGLOBIN 8.1 g/dl (12.0-16.0); LYMPHOCYTES # (AUTO) 0.5 X10'3 (1.1-4.8); LYMPHOCYTES % (AUTO) 4.5 % (21-51); MEAN CORPUSCULAR HGB CONC 32.8 % (33.0-36.5); MEAN CORPUSCULAR VOLUME 94.5 FL (78-98); MEAN PLATELET VOLUME 9.3 FL (7.4-10.4); MONOCYTES # (AUTO) 0.1 X10'3 (0-0.9); MONOCYTES % (AUTO) 0.7 % (2-12); NEUTROPHILS # (AUTO) 11.2 X10'3 (1.8-7.7); NEUTROPHILS % (AUTO) 94.7 % (42-75); PLATELET COUNT 247 X10'3 (140-440); RED BLOOD COUNT 2.61 X10'6 (4.20-5.60); WHITE BLOOD COUNT 11.8 X10'3 (4.5-11.0)
[2018-02-05 07:05] LABS: ALANINE AMINOTRANSFERASE 26 U/L (12-78); ALBUMIN 2.4 G/DL (3.4-5.0); ALBUMIN/GLOBULIN RATIO 0.6 (1.1-1.5); ALKALINE PHOSPHATASE 65 IU/L (46-116); ANION GAP 7 (8-16); ASPARTATE AMINO TRANSFERASE 10 U/L (10-37); BILIRUBIN,TOTAL 0.3 MG/DL (0.1-1.0); BLOOD UREA NITROGEN 23 MG/DL (7-18); BUN/CREATININE RATIO 25.3 (6.6-38.0); CALCIUM 9.3 MG/DL (8.5-10.1); CHLORIDE 102 MMOL/L (99-107); CREATININE 0.91 MG/DL (0.40-0.90); GLUCOSE 157 MG/DL (70-104); MAGNESIUM 2.1 MG/DL (1.5-2.4); POTASSIUM 4.8 MMOL/L (3.5-5.1); SODIUM 138 MMOL/L (135-145); TOTAL CARBON DIOXIDE 29.3 MMOL/L (24-32); TOTAL PROTEIN 6.6 G/DL (6.4-8.2); eGFR 60 ML/MIN
[2018-02-05] MEDS: budesonide 0.5mg/2ml UD nebule IH SCH ×2 (07:45→20:00)
[2018-02-05] MEDS: albuterol 2.5 MG/3 ML nebule NEB SCH ×4 (07:45→20:00)
[2018-02-05] MEDS: K and/or MAG REPLACEMENT MC SCH (08:00)
[2018-02-05] MEDS: apixaban 5mg tablet PO SCH ×2 (08:32→20:25)
[2018-02-05] MEDS: diltiazem CD 120mg capsule (once-daily) PO SCH (08:32)
[2018-02-05] MEDS: lactobacillus rhamnosus 10,000 MMU CELLS/CAPSULE PO SCH ×2 (08:32→20:26)
[2018-02-05] MEDS: busPIRone 5mg tablet PO SCH ×3 (08:32→20:26)
[2018-02-05 10:00] VITALS: BP 131/61
--- NOTE | 2018-02-05 11:56 | NUR ---
Initial: Pt s/p L femur fx repair from fall. PO 75% avg heart healthy meals meeting protein needs for wound healing w/ small stature. On remeron. No hx wt changes likely always petite. LBM 02/04. Will monitor for additional protein needs. Rec: 1. continue heart healthy diet 2. monitor for ONS needs 3. wt per rx Addendum: 02/05/18 at [address] Amended: Links added.
[2018-02-05] MEDS ORDERED: methylPREDNISolone sod succ 125mg/2ml vial IV ONE (16:30)
[2018-02-05 18:00] VITALS: BP 119/44
--- NOTE | 2018-02-05 18:13 | NUR ---
Problems reprioritized. Patient report given, questions answered & plan of care reviewed with Helena OTERO.
[2018-02-05] MEDS ORDERED: methylPREDNISolone sod succ/PF 40mg inj. IV ONE (20:00)
--- NOTE | 2018-02-05 20:13 | NUR ---
RECEIVED REPORT FROM EPYTON OTERO AND ASSUMED PATIENT CARE Addendum: 02/05/18 at 2014 by Helena Burnham RN RECEIVED REPORT AT 1800
[2018-02-05] MEDS: mirtazapine 15mg tablet PO SCH (20:26)
[2018-02-05 22:00] VITALS: BP 133/62
[2018-02-06] MEDS: CEFEPIME 2 GM in NS 100ml IV.SOLN 100 ML IV SCH ×3 (00:38→15:21)
[2018-02-06] MEDS: HYDROcodone/acetaminophen 10/325mg tab PO PRN ×2 (04:44→16:04)
[2018-02-06 06:00] VITALS: BP 134/68
--- NOTE | 2018-02-06 06:17 | NUR ---
REPORT GIVEN TO PEYTON OTERO
[2018-02-06] MEDS: budesonide 0.5mg/2ml UD nebule IH SCH (07:09)
[2018-02-06] MEDS: albuterol 2.5 MG/3 ML nebule NEB SCH ×3 (07:09→15:11)
[2018-02-06] MEDS: K and/or MAG REPLACEMENT MC SCH (08:00)
[2018-02-06] MEDS: busPIRone 5mg tablet PO SCH ×2 (08:11→12:09)
[2018-02-06] MEDS: diltiazem CD 120mg capsule (once-daily) PO SCH (08:11)
[2018-02-06] MEDS: apixaban 5mg tablet PO SCH (08:12)
[2018-02-06] MEDS: lactobacillus rhamnosus 10,000 MMU CELLS/CAPSULE PO SCH (08:12)
[2018-02-06 10:00] VITALS: BP 151/64
[2018-02-06] MEDS ORDERED: PRED1TAB PO (12:59)
[2018-02-06] MEDS ORDERED: CEFE1FRO IV (12:59)
[2018-02-06] MEDS ORDERED: CEFD300C3 PO (15:48)
--- NOTE | 2018-02-06 16:30 | NUR ---
IV removed, Tele Removed, discharge given to [place].
== END 2018-02-06 17:00 | DRG 480 ==
LOC: ER 01:04 → ED HOLD 11:24 → ORTHO 4S 12:30
PROVIDERS: ADMIT Internal Medicine; ATTEND Internal Medicine
PROC: 0QS704Z Reposition Left Upper Femur with Internal Fixation Device, Open Approach (ICD-10-PCS; principal; 2018-02-02 14:34)
DX: S72.22XA Displaced subtrochanteric fracture of left femur, initial encounter for closed fracture (principal); J18.9 Pneumonia, unspecified organism; M97.02XA Periprosthetic fracture around internal prosthetic left hip joint, initial encounter; J44.1 Chronic obstructive pulmonary disease with (acute) exacerbation; J96.10 Chronic respiratory failure, unspecified whether with hypoxia or hypercapnia; J44.0 Chronic obstructive pulmonary disease with (acute) lower respiratory infection; I48.91 Unspecified atrial fibrillation; G47.00 Insomnia, unspecified; I10 Essential (primary) hypertension; F32.9 Major depressive disorder, single episode, unspecified; W06.XXXA Fall from bed, initial encounter; M81.0 Age-related osteoporosis without current pathological fracture; Z79.51 Long term (current) use of inhaled steroids; Z79.82 Long term (current) use of aspirin; Z87.891 Personal history of nicotine dependence; Y99.8 Other external cause status; Y93.89 Activity, other specified; Y92.003 Bedroom of unspecified non-institutional (private) residence as the place of occurrence of the external cause
CPT/HCPCS: 36415; 71045; 72170; 73502; 73700; 80053; 81001; 83735; 85025; 85379; 85610; 85730; 87070; 87077; 87186; 93005; 93308; 94640; 94760; 96360; 96361; 97110; 97116; 97161; 97530; 99285; A6222; A6449; A6454; A7000; G0378; J0690; J0692; J0696; J1650; J2250; J2270; J2920; J2930; J3010; J3370; J3490; J7030; J7120; J7512; J7626